=== PATIENT | female | born 1975 | race Caucasian/White ===

== ENCOUNTER 2019-12-31 07:06 | Day surgery (SDC) | payer OTHER ==
[~2019-12-31] VITALS: Ht 157.5 cm; Wt 73.6 kg
[~2019-12-31 07:06] MED LIST: SODIUM CHLORIDE 0.9% 1,000 ML IV ONE; SODIUM CHLORIDE 0.9% 1,000 ML ONE
[2019-12-31] MEDS ORDERED: FentaNYL CITRATE-PF 100 MCG/2 ML VIAL ONE (07:52)
[2019-12-31] MEDS ORDERED: MIDAZOLAM HCL 2 MG/2 ML VIAL ONE (07:52)
[2019-12-31] MEDS ORDERED: GLUC-236 PO (08:03)
[2019-12-31] MEDS ORDERED: OMEP20 PO (08:03)
[2019-12-31] MEDS ORDERED: CALC-1038 PO (08:03)
[2019-12-31] MEDS ORDERED: MONT-35 PO (08:03)
[2019-12-31] MEDS ORDERED: BACL10TA PO (08:03)
[2019-12-31] MEDS ORDERED: GABA-1181 PO (08:03)
[2019-12-31] MEDS ORDERED: CHOL100018 PO (08:03)
[2019-12-31] MEDS ORDERED: DULO30CA96 PO (08:03)
[2019-12-31] MEDS ORDERED: MethylPREDNISolone SOD SUCC 125 MG/2 ML VIAL IVP ONE (08:45)
[2019-12-31] MEDS ORDERED: MethylPREDNISolone SOD SUCC 125 MG/2 ML VIAL ONE (09:10)
[2019-12-31] MEDS ORDERED: OXYGEN THERAPY IH SCH (20:00)
[2019-12-31] MEDS ORDERED: ALBUTEROL SULFATE 2.5 MG/0.5 ML NEB SOLUTION NEB ONE (21:31)
[2019-12-31] MEDS ORDERED: LIDOCAINE 4% 50 ML SOLUTION ONE (21:31)
[2019-12-31] MEDS ORDERED: BENZOCAINE 20% 50 MCG/SPRAY 57 GM ONE (21:31)
[2019-12-31] MEDS ORDERED: LIDOCAINE 2% 30 ML JELLY ONE (21:31)
== END 2019-12-31 10:50 | disposition home or self-care (01) ==
LOC: SURGERY 07:06
PROVIDERS: ATTEND Internal Medicine Critical Care Medicine
DX: J38.4 Edema of larynx (principal); B37.0 Candidal stomatitis; Z11.59 Encounter for screening for other viral diseases
CPT/HCPCS: 31623; 31624; 71045; 84703; 87015; 87070; 87101; 87205; 87206; 87220; 87635; 88108; 88312; J2250; J2930; J3010; J7030; J7613; Z7610